=== PATIENT | female | born 1970 | race American Indian/Alaskan Native ===

== ENCOUNTER 2018-05-26 00:52 | Inpatient (IN) | payer MEDICAID ==
--- NOTE | 2018-05-26 01:22 | C.PDOC ---
History Of Present Illness 48 year old female presents to the ED for evaluation of depression and suicidal ideation, Patient denies HI, hallucinations, injury, fall, trauma, other medical complaints at this time. Time Seen by Provider: 05/26/18 01:14 Chief Complaint (Nursing): Psychiatric Evaluation History Per: Patient History/Exam Limitations: no limitations Onset/Duration Of Symptoms: Days Current Symptoms Are (Timing): Still Present Modifying Factor(s): None Associated Symptoms: Depression, Suicidal Thoughts Recent travel outside of the [place]: No Additional History Per: Patient, EMS Past Medical History Reviewed: Historical Data, Nursing Documentation, Vital Signs Vital Signs: Last Vital Signs Temp 98.6 F 05/26/18 01:07 Pulse 93 H 05/26/18 01:07 Resp 20 05/26/18 01:07 BP 159/101 H 05/26/18 01:07 Pulse Ox 99 05/26/18 01:07 - Medical History PMH: Asthma, HIV, HTN Surgical History: No Surg Hx Family History: States: Unknown Family Hx - Social History Hx Tobacco Use: Yes (quit few days ago) Hx Alcohol Use: No Hx Substance Use: Yes (heroin use) Review Of Systems Constitutional: Negative for: Fever, Chills Cardiovascular: Negative for: Chest Pain Respiratory: Negative for: Shortness of Breath Gastrointestinal: Negative for: Nausea, Vomiting, Abdominal Pain Skin: Negative for: Rash Neurological: Negative for: Weakness, Numbness Psych: Positive for: Depression, Suicidal ideation Physical Exam - Physical Exam Appears: Non-toxic, No Acute Distress Skin: Normal Color, Warm, Dry Head: Atraumatic, Normacephalic Eye(s): bilateral: Normal Inspection Neck: Normal ROM, Supple Chest: Symmetrical Cardiovascular: Rhythm Regular Respiratory: Normal Breath Sounds, No Rales, No Rhonchi, No Wheezing Gastrointestinal/Abdominal: Soft, No Tenderness, No Guarding, No Rebound Extremity: Normal ROM, No Tenderness, No Swelling Neurological/Psych: Oriented x3, Normal Speech, Normal Cognition Gait: Steady ED Course And Treatment - Laboratory Results Result Diagrams: 05/26/18 01:32 05/26/18 01:32 O2 Sat by Pulse Oximetry: 99 (On RA) Pulse Ox Interpretation: Normal Medical Decision Making Medical Decision Making: Plan: * LAbs * UA * Crsis Disposition Discussed With : Ele Joseph Doctor Will See Patient In The: Hospital Counseled Patient/Family Regarding: Diagnosis - Disposition Disposition: HOSPITALIZED Disposition Time: 04:51 Condition: STABLE Forms: [facility] (Georgian) - POA Present On Arrival: None - Clinical Impression Clinical Impression: Major depressive disorder - Scribe Statement The provider has reviewed the documentation as recorded by the Scribe Alberto Scott All medical record entries made by the Scribe were at my direction and personally dictated by me. I have reviewed the chart and agree that the record accurately reflects my personal performance of the history, physical exam, medical decision making, and the department course for this patient. I have also personally directed, reviewed, and agree with the discharge instructions and disposition.
[2018-05-26 01:35] LABS: BASO # 0.1 K/uL (0.0-0.2); EOS # 0.1 K/uL (0.0-0.7); EOS % 0.7 % (0.0-4.0); HEMOGLOBIN 14.7 g/dL (11.0-16.0); LYMPH # 1.8 K/uL (1.0-4.3); LYMPH % 22.6 % (20.0-40.0); MEAN CELL VOLUME 87.2 fL (81.0-99.0); MEAN CORPUSCULAR HEMOGLOBIN 29.8 pg (27.0-31.0); MEAN CORPUSCULAR HGB CONC 34.2 g/dL (33.0-37.0); MEAN PLATELET VOLUME 8.4 fL (7.2-11.7); MONO # 0.4 K/uL (0.0-0.8); MONO % 5.2 % (0.0-10.0); NEUT # 5.5 K/uL (1.8-7.0); NEUT % 70.5 % (50.0-75.0); RBC 4.94 Mil/uL (3.80-5.20); RED CELL DISTRIBUTION WIDTH 14.9 % (11.5-14.5); WHITE BLOOD COUNT 7.8 K/uL (4.8-10.8)
[2018-05-26 02:00] LABS: ALB/GLOB RATIO 1.2 (1.0-2.1); ALBUMIN 4.1 g/dL (3.5-5.0); ALT/SGPT 9 U/L (9-52); AST/SGOT 25 U/L (14-36); BLOOD UREA NITROGEN 12 mg/dL (7-17); CALCIUM 9.1 mg/dl (8.6-10.4); GFR NON-AFRICAN AMERICAN > 60
[2018-05-26 04:17] LABS: SQUAMOUS EPITHIAL 24 /hpf (0-5); URINE BACTERIA RARE (<OCC); URINE BILIRUBIN NEGATIVE (NEGATIVE); URINE BLOOD 3+ (NEGATIVE); URINE CLARITY Hazy (Clear); URINE COLOR Yellow (YELLOW); URINE GLUCOSE (UA) NORMAL (Normal); URINE LEUKOCYTE ESTERASE 1+ Leu/uL (Negative); URINE PROTEIN 1+ mg/dL (NEGATIVE)
[2018-05-26 04:24] LABS: BARBITURATES, UR NEGATIVE (NEGATIVE); BENZODIAZEPINES, UR POSITIVE (NEGATIVE); OPIATES, UR POSITIVE (NEGATIVE); PHENCYCLIDINE, UR NEGATIVE (NEGATIVE)
[2018-05-26 05:25] VITALS: O2SAT 96
--- NOTE | 2018-05-26 06:22 | PCM.BM ---
<Robe Grayson - Last Filed: 05/26/18 06:20> Treatment Plan Problems - Problems identified on initial assessmt Altered Sleep Patterns Date Initiated: 05/26/18 Time Initiated: 05:35 Assessment reference: NA Status: Active Less than Optimal Nutrition Date Initiated: 05/26/18 Time Initiated: 05:35 Assessment reference: NA Status: Active Treatment assets and liabiliti Patient Assests: ADL independent, negotiates basic needs, cognitively intact Patient Liabilities: substance abuse, medical problems - Milieu Protocol Maintain good personal hygiene: daily Encourage regular showers, daily Remind patient to perform daily oral care, daily Assist patient to perform ADL's Conduct patient checks and document Observation sheet: Q15 minutes Maintain personal safety: every shift Educate patient to report safety concerns to staff, every shift Monitor environment for contraband/sharps Medication safety: Monitor for expected outcome, potential side effects: every shift, Assess barriers to learning: every shift, Assess readiness for medication education: every shift <Rosita Wilson - Last Filed: 05/26/18 11:13> - Diagnosis (1) Major depressive disorder Status: Acute Interventions: 05/26/18 11:13 * Assess/adjust medications daily and /or as needed * See patient on an individual basis 7x/week to assess symptoms of depression * Monitor for side effects & effectiveness of medications * <Joslyn Felix - Last Filed: 05/26/18 12:21> Family Contact Family involvement: Patient does not wish Family/SO involvement Family contact: Patient declines to allow family contact at present - Goals for Treatment Patient goals for treatment: "I want to go to a rehab program." Discharge/Continuing Care - Education Needs Education Needs: Patient Medication, Patient Diagnosis/Disease Process, Patient Coping Skills, Patient Placement options, Patient Community resources - Discharge Discharge Criteria: Free of Suicidal thoughts, Normal sleep pattern, Ability to care for self, No longer exhibiting s/s of withdrawal, Reduction of target symptoms Discharge to:: Substance Abuse Rehab - Treatment Team Participation Discussed with Family/SO: No Was Patient/Family/SO present at Treatment Team Meeting: Yes
--- NOTE | 2018-05-26 11:09 | PCM.PSYCH ---
Initial Psychiatric Evaluation - Initial Psychiatric Evaluation Type of Admission: Voluntary Legal Status: Capacity History of Present Illness and Precipitating Events: 48yo -[place] women ambulatory to ED reportedly c/o suicidal idx while under the influence of ETOH, heroin, and cocaine; Pt's initial BAL=18; Pt reports the following: "I'm real depressed;" I'm just thinking crazy, and I want to hurt myself;" I don't know which way to go;" I need help;" Pt has had symptoms of depression/anhedonia for "almost a month"; Pt described her symptoms of depression/anhedonia as follows: "don't want to talk to nobody, do nothing, just lay around, I want to be by myself, aggravate so fast", and sleep/appetite disturbance (Pt reported losing "10 to 15lbs over a month"); Pt has also had thoughts of suicde for "a month"; Pt denied having a suicide plan and denied having a prior hx of suicide attempts; However, Pt does have a prior hx of suicidal idx, in 2014, following the of her sister (sister of cancer); Pt currently denies having any active suicide idx, stating: "You're here"; Pt admits to daily dependence of intranasal heroin and a more sporadic hx of ETOH/cocaine use; Last use of all three substances was yesterday ("10bags" of heroin, "a shot" of ETOH, and "3vials" of cocaine); Pt denied ever od on heroin, and has never been treated with Narcan; Pt has been homeless "a whole year" (Although, Pt does report one of her sons as a social support); Pt is treated with Xanax 2mg TID by her PCP (Pt could not recall name of same); Pt admits to a hx of Xanax related withdrawals, which she described as: "real sick, throwing up, dizzy"; Pt denied hx of ETOH/Xanax related seizures. Current Medications: Active Medications Generic Name Dose Route Start Last Admin Trade Name Freq PRN Reason Stop Dose Admin Influenza Virus Vaccine 60 mcg 05/28/18 10:00 Flucelvax Quad [id number] Syr IM 05/28/18 10:01 .ONCE ONE Nicotine 1 patch 05/26/18 10:00 05/26/18 09:26 Nicoderm Cq TD Not Given DAILY DAMI Pneumococcal Polyvalent Vaccine 0.5 ml 05/28/18 10:30 Pneumovax 23 Vaccine IM 05/28/18 10:31 .ONCE ONE Past Psychiatric History - Past Psychiatric History Previous Treatment History: Inpatient Pertinent Medical Hx (Current Medical&Sleep Prob, Allergies): Allergies Allergy/AdvReac Type Severity Reaction Status Date / Time No Known Allergies Allergy Verified 05/26/18 01:06 No Known Home Med 05/26/18 Review of Systems - Review of Systems All systems: reviewed and no additional remarkable complaints except - Psychiatric Psychiatric: Anxiety, Auditory Hallucinations, Irritability, Suicidal Ideation Mental Status Examination - Personal Presentation Personal Presentation: Looks stated age - Affect Affect: Constricted, Depressed - Motor Activity Motor Activity: Psychomotor Agitation - Reliability in Providing Information Reliability in Providing Information: Poor, due to alteration in thoughts, Poor, due to altered mood - Speech Speech: Organized - Mood Mood: Depressed, Anxious - Formal Thought Process Formal Thought Process: Hallucinations, Delusions, Paranoia - Hallucinations/Delusions Hallucinations: Visual, Auditory Delusions: Persecution - Obsessions/Compulsions Obsessions: No Compulsions: No - Cognitive Functions Orientation: Person, Place, Situation, Time Sensorium: Alert Abstract Thinking: [place] Estimate of Intelligence: Below average Judgement: Imparied, as evidence by: Poor judgement, Imparied, as evidence by: Lack of insight into illness - Risk Risk: Suicidal, Withdrawal, Diminished functioning - Limitations Limitations: Living alone DSM 5 DX - DSM 5 DSM 5 Diagnosis: Bipolar disorder depressed severe with psychotic features Opioid use disorder severe Opioid withdrawal Cocaine use disorder severe Alcohol use disorder moderate - Recommended/Plan of Treatment Treatment Recommendations and Plan of Treatment: Bipolar disorder depressed severe with psychotic features Opioid use disorder severe Opioid withdrawal Cocaine use disorder severe Alcohol use disorder moderate CBT Psychoeducation Supportive therapy and group therapy Methadone taper for opioid withdrawal Withdrawal medications Neurontin for augmentation Trazodone for insomnia Hydroxyzine for anxiety Remeron for depression
[2018-05-26] MEDS ORDERED: Aluminum Hydroxide/Magnesium Hydroxide Susp (30 mL) PO PRN (11:10)
--- NOTE | 2018-05-27 10:52 | PCM.PYCHPN ---
Mental Status Examination - Cognitive Function Orientation: Person, Place, Situation, Time - Mood Mood: Depressed, Anxious - Affect Affect: Constricted, Depressed - Formal Thought Process Formal Thought Process: Hallucinations, Delusions, Paranoia - Homicidal Ideation Homicidal Ideation: No Goal/Treatment Plan - Goal/Treatment Plan Progress Toward Problem(s) and Goals/Treatment Plan: Bipolar disorder depressed severe with psychotic features Opioid use disorder severe Opioid withdrawal Cocaine use disorder severe Alcohol use disorder moderate CBT Psychoeducation Supportive therapy and group therapy Methadone taper for opioid withdrawal Withdrawal medications Neurontin for augmentation Trazodone for insomnia Hydroxyzine for anxiety Remeron for depression
[2018-05-28] MEDS ORDERED: Influenza Vaccine 60 mcg/0.5 mL SYR (4YR UP) IM ONE (10:00)
[2018-05-28] MEDS ORDERED: Pneumococcal 23-Valent Vaccine IM ONE (10:30)
[2018-05-29 06:48] VITALS: RESP 18; TEMP 97.6
--- NOTE | 2018-05-29 09:39 | PCM.PYCHPN ---
Psychiatric Progress Note - Psychiatric Progress Note Patient seen today, length of contact: 15 min Medication Change: Yes Medical Record Reviewed: Yes Mental Status Examination - Cognitive Function Orientation: Person, Place, Situation, Time Memory: Intact Attention: WNL Concentration: Poor Association: WNL Fund of Knowledge: Poor - Mood Mood: Depressed, Anxious - Affect Affect: Constricted, Depressed - Speech Speech: Soft - Formal Thought Process Formal Thought Process: Paranoia - Suicidal Ideation Suicidal Ideation: No - Homicidal Ideation Homicidal Ideation: No Goal/Treatment Plan - Goal/Treatment Plan Need for Continued Stay: Remain at risks for inpatient hospitalization Progress Toward Problem(s) and Goals/Treatment Plan: Bipolar disorder depressed severe with psychotic features Opioid use disorder severe Opioid withdrawal Cocaine use disorder severe Alcohol use disorder moderate CBT Psychoeducation Supportive therapy and group therapy Methadone taper for opioid withdrawal Withdrawal medications Neurontin for augmentation Trazodone for insomnia Hydroxyzine for anxiety Remeron for depression
--- NOTE | 2018-05-29 09:41 | PCM.PYCHDC ---
Mental Status Examination - Mental Status Examination Orientation: Person, Place, Situation, Time Memory: Intact Mood: Neutral Affect: Constricted Speech: Soft Attention: WNL Concentration: WNL Association: WNL Fund of Knowledge: WNL Formal Thought Process: No Impairment Description of patient's judgement and insight: good, fair Psychotic Thoughts and Behaviors: denies any AVH Suicidal Ideation: No Current Homicidal Ideation?: No Discharge Summary - Discharge Note Consultations:: List each consultation separately and include: 1. Reason for request. 2. Findings. 3. Follow-up Summary of Hospital Course include:: 1. Description of specific treatment plan utilized for patients during their course of treatmen. 2. Summarize the time- course for resolution of acute symptoms and/or regressed behaviors. 3. Describe issues identified and worked on during hospitalization. 4. Describe medication utilized. 5. Describe medical problems identified and treated. 6. Reassessment of suicide risk Summary of Hospital Course: 48yo -[place] women ambulatory to ED reportedly c/o suicidal idx while under the influence of ETOH, heroin, and cocaine; Pt's initial BAL=18; Pt reports the following: "I'm real depressed;" I'm just thinking crazy, and I want to hurt myself;" I don't know which way to go;" I need help;" Pt has had symptoms of depression/anhedonia for "almost a month"; Pt described her symptoms of depression/anhedonia as follows: "don't want to talk to nobody, do nothing, just lay around, I want to be by myself, aggravate so fast", and sleep/appetite disturbance (Pt reported losing "10 to 15lbs over a month"); Pt has also had thoughts of suicde for "a month"; Pt denied having a suicide plan and denied having a prior hx of suicide attempts; However, Pt does have a prior hx of suicidal idx, in 2015, following the of her sister (sister of cancer); Pt currently denies having any active suicide idx, stating: "You're here"; Pt admits to daily dependence of intranasal heroin and a more sporadic hx of ETOH/cocaine use; Last use of all three substances was yesterday ("10bags" of heroin, "a shot" of ETOH, and "3vials" of cocaine); Pt denied ever od on heroin, and has never been treated with Narcan; Pt has been homeless "a whole year" (A lthough, Pt does report one of her sons as a social support); Pt is treated with Xanax 2mg TID by her PCP (Pt could not recall name of same); Pt admits to a hx of Xanax related withdrawals, which she described as: "real sick, throwing up, dizzy"; Pt denied hx of ETOH/Xanax related seizures. - Diagnosis (1) Major depressive disorder Current Visit: Yes Status: Acute - Final Diagnosis (DSM 5) Condition upon Discharge: STABLE DSM 5: Bipolar disorder depressed severe with psychotic features Opioid use disorder severe Opioid withdrawal Cocaine use disorder severe Alcohol use disorder moderate Disposition: HOME/ ROUTINE Follow-up Treatment Plan: Bipolar disorder depressed severe with psychotic features Opioid use disorder severe Opioid withdrawal Cocaine use disorder severe Alcohol use disorder moderate CBT Psychoeducation Supportive therapy and group therapy Methadone taper for opioid withdrawal Withdrawal medications Neurontin for augmentation Trazodone for insomnia Hydroxyzine for anxiety Remeron for depression Prescriptions/Medication Reconciliation: Gabapentin [Neurontin] 300 mg PO BID #60 cap Mirtazapine [Remeron] 30 mg PO HS #30 tab traZODone [Desyrel] 50 mg PO HS #30 tab - Smoking Cessation Smoking Cessation Medication prescribed: No
[2018-05-29 09:54] VITALS: BP 126/83; PULSE 97
== END 2018-05-29 11:13 | disposition home or self-care (01) | DRG 430 ==
LOC: C.ER 00:52 → C.5E 04:52
PROVIDERS: ADMIT Psychiatry & Neurology Psychiatry; ATTEND Psychiatry & Neurology Psychiatry
PROC: GZ3ZZZZ Medication Management (ICD-10-PCS; principal; 2018-05-26)
PROC: HZ81ZZZ Medication Management for Substance Abuse Treatment, Methadone Maintenance (ICD-10-PCS; 2018-05-26)
PROC: GZHZZZZ Group Psychotherapy (ICD-10-PCS; 2018-05-26)
PROC: GZ56ZZZ Individual Psychotherapy, Supportive (ICD-10-PCS; 2018-05-26)
DX: F31.5 Bipolar disorder, current episode depressed, severe, with psychotic features (principal); F11.23 Opioid dependence with withdrawal; F14.20 Cocaine dependence, uncomplicated; F10.10 Alcohol abuse, uncomplicated; R45.851 Suicidal ideations; F41.9 Anxiety disorder, unspecified; G47.00 Insomnia, unspecified; I10 Essential (primary) hypertension; J45.909 Unspecified asthma, uncomplicated; Y90.0 Blood alcohol level of less than 20 mg/100 ml; Z87.891 Personal history of nicotine dependence; Z59.0 Homelessness